=== PATIENT | male | born 1940 | race Caucasian/White ===

== ENCOUNTER 2021-09-16 07:58 | Day surgery (SDC) | payer OTHER ==
[2021-09-16] VITALS (22 sets, daily range): BP systolic 110–186; BP diastolic 58–95
[2021-09-16] MEDS ORDERED: CHOL20004 PO (08:38)
[2021-09-16] MEDS ORDERED: ASCO-139 PO (08:38)
[2021-09-16] MEDS ORDERED: IBUP-2417 PO (08:38)
[2021-09-16] MEDS ORDERED: ATOR40TA PO (08:38)
[2021-09-16] MEDS ORDERED: DICLOFENAC 1% TOP (08:38)
[2021-09-16] MEDS ORDERED: CIDE600C PO (08:38)
[2021-09-16] MEDS ORDERED: FLO0.4C PO (08:38)
[2021-09-16] MEDS ORDERED: CARB15DR58 OP (08:38)
[2021-09-16] MEDS ORDERED: ACET-1025 PO (08:38)
[2021-09-16] MEDS ORDERED: BRIM5DRO16 RIGHTEYE (08:38)
[2021-09-16] MEDS ORDERED: DORZ10DR10 RIGHTEYE (08:38)
[2021-09-16] MEDS ORDERED: XAL0.005OS OP (08:38)
[2021-09-16 08:47] LABS: BASOPHILS % (AUTO) 0.3 % (0-1); EOSINOPHILS # (AUTO) 0.1 X10'3 (0-0.9); EOSINOPHILS % (AUTO) 1.5 % (0-6); HEMATOCRIT 42.2 % (42.0-52.0); LYMPHOCYTES # (AUTO) 1.3 X10'3 (1.1-4.8); LYMPHOCYTES % (AUTO) 25.1 % (21-51); MEAN CORPUSCULAR HEMOGLOBIN 29.2 PG (27.0-31.0); MEAN CORPUSCULAR HGB CONC 33.1 g/dL (33.0-36.5); MEAN PLATELET VOLUME 9.9 FL (7.4-10.4); MONOCYTES # (AUTO) 0.4 X10'3 (0-0.9); MONOCYTES % (AUTO) 7.7 % (2-12); NEUTROPHILS # (AUTO) 3.3 X10'3 (1.8-7.7); NEUTROPHILS % (AUTO) 65.4 % (42-75); PLATELET COUNT 134 X10'3 (140-440); RED CELL DISTRIBUTION WIDTH 13.4 % (11.5-14.5); WHITE BLOOD COUNT 5.1 X10'3 (4.5-11.0)
[2021-09-16] MEDS ORDERED: fentaNYL/PF 50MCG/1 ML 2ML syringe ONE (09:57)
[2021-09-16] MEDS ORDERED: midazolam 1 mg/ML 2ml injection ONE (09:57)
[2021-09-16] MEDS ORDERED: sodium chloride 0.45% 1,000 ML IV SCH (10:05)
== END 2021-09-16 14:42 | disposition home or self-care (01) ==
LOC: SSTAY O 07:58
PROVIDERS: ATTEND Radiology Diagnostic Radiology
DX: R91.1 Solitary pulmonary nodule (principal); C34.31 Malignant neoplasm of lower lobe, right bronchus or lung; N40.0 Benign prostatic hyperplasia without lower urinary tract symptoms; H40.9 Unspecified glaucoma; E78.5 Hyperlipidemia, unspecified; G25.0 Essential tremor; Z77.090 Contact with and (suspected) exposure to asbestos; Z87.891 Personal history of nicotine dependence; Z79.899 Other long term (current) drug therapy; Z79.01 Long term (current) use of anticoagulants
CPT/HCPCS: 32408; 36415; 71045; 85025; 85610; J2250; J3010; 77012